=== PATIENT | female | born 1990 | race African-American/Black ===

== ENCOUNTER 2020-02-02 08:45 | Inpatient (IN) | payer OTHER ==
[2020-02-02] MEDS ORDERED: DEXTROSE 5%-LACTATED RINGERS 1,000 ML IV SCH ×2 (10:15→11:16)
[2020-02-02 11:15] VITALS: BMI 27.1
[2020-02-02] MEDS ORDERED: AMPICILLIN - 2 GM in SODIUM CHLORIDE 100 ML IVPB ONE (11:30)
[2020-02-02] MEDS ORDERED: AMPICILLIN SODIUM 2 GM VIAL ONE (11:34)
[2020-02-02] MEDS ORDERED: PROMETHAZINE HCL 25 MG/1 ML VIAL IVPB ONE (11:45)
[2020-02-02] MEDS ORDERED: ELECTROLYTE-148 SOLN 1,000 ML IV SCH ×2 (11:45→19:15)
[2020-02-02] MEDS ORDERED: BUTORPHANOL TARTRATE 2 MG/ML VIAL IVPB ONE (11:45)
[2020-02-02] MEDS ORDERED: BUTORPHANOL TARTRATE 2 MG/ML VIAL ONE (12:07)
[2020-02-02] MEDS ORDERED: PROMETHAZINE HCL 25 MG/1 ML VIAL ONE (12:08)
[2020-02-02 12:17] LABS: BASO % 0.3 % (0-2.0); EOS % 0.1 % (0-4.5); HEMATOCRIT 36.3 % (32.4-45.2); LYMPH % 10.2 % (8-40); MCH 32.4 pg (25.7-33.7); MCHC 33.2 g/dl (32.0-36.0); MEAN CELL VOLUME 97.7 fl (80-96); MEAN PLT VOLUME 10.1 fl (7.5-11.1); MONO % 4.1 % (3.8-10.2); NEUT % 85.3 % (42.8-82.8); PLATELET COUNT 173 K/MM3 (134-434); RBC 3.71 M/mm3 (3.60-5.2); RDW 12.8 % (11.6-15.6); WHITE BLOOD COUNT 10.5 K/mm3 (4.0-10.0)
[2020-02-02 12:32] LABS: INR 0.85 (0.83-1.09)
[2020-02-02 12:33] LABS: BLOOD UREA NITROGEN 8.3 mg/dL (7-18); CALCIUM 9.2 mg/dL (8.5-10.1); CREATININE 0.8 mg/dL (0.55-1.3); POTASSIUM 3.9 mmol/L (3.5-5.1)
[2020-02-02 12:35] LABS: ACTIVATED PTT 24.9 SECONDS (25.2-36.5)
[2020-02-02] MEDS ORDERED: AMPICILLIN SODIUM 1 GM VIAL ONE (14:54)
[2020-02-02] MEDS ORDERED: OXYTOCIN 30 UNITS in 0.9% NS 30 UNIT/500 ML INFUS.BAG IVPB ONE (14:54)
[2020-02-02] MEDS: AMPICILLIN - 1 GM in SODIUM CHLORIDE 100 ML IVPB SCH ×2 (15:14→19:31)
[2020-02-02] MEDS ORDERED: OXYTOCIN 30 UNITS in 0.9% NS 30 UNIT/500 ML INFUS.BAG IVPB SCH (15:15)
[2020-02-02] MEDS ORDERED: FENTANYL/BUPIVACAINE/NS/PF - PCEA - 50 ML DISP.SYRIN EP ONE (15:42)
[2020-02-02] MEDS ORDERED: NALOXONE HCL 0.4 MG/ML VIAL IVPUSH PRN (16:37)
[2020-02-02] MEDS ORDERED: FENTANYL/BUPIVACAINE/NS/PF - PCEA - 50 ML DISP.SYRIN EP SCH (16:45)
[2020-02-02] MEDS ORDERED: LIDOCAINE HCL 1% PRESERVATIVE FREE - 30ML VIAL ONE (17:44)
[2020-02-02] MEDS ORDERED: OXYTOCIN 20 UNITS in 0.9% NS 20 UNIT/1,000 ML INFUS.BAG IV ONE (17:44)
[2020-02-02] MEDS ORDERED: PCA PUMP NR ONE (18:58)
[2020-02-02] MEDS ORDERED: BENZOCAINE 20% 57 GM BOTTLE TP PRN (19:11)
[2020-02-02] MEDS ORDERED: WITCH HAZEL 50% (TUCKS) 40 PAD/JAR PAD TP PRN (19:11)
[2020-02-02] MEDS ORDERED: METHYLERGONOVINE MALEATE 0.2 MG/1 ML AMP IM PRN (19:11)
[2020-02-02] MEDS ORDERED: BISACODYL 10 MG SUPP.RECT RC PRN (19:11)
[2020-02-02] MEDS ORDERED: BENZOCAINE 28 GM HEMORRHOIDAL OINTMENT TP PRN (19:11)
--- NOTE | 2020-02-02 19:11 | HP ---
Past Medical History - Primary Care Physician PCP:: Tanner Paris - Admission Chief Complaint: 29yo P0 with at EGA 38w3d admitted with spontaneous early labor. 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: No: Alzheimer's, CVA, Dementia, Migraine, Multiple Sclerosis, Peripheral Neuropathy, Parkinson's, Seizure, Syncope, TIA, Vertigo, Other Cardiovascular: No: AFIB, Aneurysm, Aortic Insufficiency, Aortic Stenosis, CAD, CHF, Deep Vein Thrombosis, HTN, Hyperlipdemia, LA, Mitral Insufficiency, Mitral Stenosis, Murmur, Pulmonary Hypertension, Other Pulmonary: No: Asthma, Bronchitis, Cancer, COPD, O2 Dependent, Pneumonia, Previously Intubated, Pulmonary Embolus, Pulmonary Fibrosis, Sleep Apnea, Other Gastrointestinal: No: Ascites, Cancer, Constipation, Crohn's Disease, Diverticulitis, Diverticulosis, Esophageal Varices, Gastritis, GERD, GI Bleed, Hemorrhoids, Hiatal Hernia, Inflamatory Bowel Disease, Irritable Bowel Disease, Pancreatitis, Peptic Ulcer Disease, Ulcerative Colitis, Other Hepatobiliary: No: Cirrhosis, Cholelithiasis, Cholecystitis, Choledocholithiasis, Hepatitis A, Hepatitis B, Hepatitis C, Other Renal/: No: Renal Failure, Renal Inusuff, BPH, Cancer, Hematuria, Hemodial ysis, Neurogenic Bladder, Renal Calculi, UTI, Other Reproductive: No: Ectopic , Endometriosis, Fibroids, PID, Polycystic Ovary Syndrome, Postmenopausal, Other ...: 1 ...Para: 0 ...Term: 0 ...: 0 ...Spon : 0 ...Induced : 0 ...Living Children: 0 ...Multiple Gestation: 0 ...LMP: 05/04/19 ... Weeks Gestation by Dates: 38.3 ...EDC by Dates: 02/08/20 ...EDC by Sono: 02/11/20 Heme/Onc: No: Anemia, B12 Deficiency, Bleeding Disorder, Cancer, Current Chemotherapy, Current Radiation Therapy, Hemochromatosis, Hypercoaguable State, Myeloproliferative Synd, Sickle Cell Disease, Sickle Cell Trait, Thrombocytopenia, Other Infectious Disease: No: AIDS, C-Diff, Herpes Zoster, HIV, MRSA, STD's, T uberculosis, VREF, Other Psych: No: Addictions, Anxiety, Bipolar, Depression, Panic, Psychosis, Schizophrenia, Other Musculoskeletal: No: Bursitis, Chronic low back pain, Hemiparesis, Hemiplegia, Osteoarthritis, Paraplegia, Other Rheumatology: No: Fibromyalgia, Gout, Lupus, Rheumatoid Arthritis, Sarcoidosis, Vasculitis, Other ENT: No: Allergic Rhinitis, Sinusitis, Other Endocrine: No: Nghia's Disease, [place]'s Disease, Diabetes Insipidus, Diabetes Mellitus, Hyperparathyroidism, Hyperthyroidism, Hypothyroidism, Osteopenia, SIADH, Other Dermatology: No: Basal Cell, Cellulitis, Eczema, Melanoma, Psoriasis, Squamous Cell, Other - Past Surgical History Past Surgical History: Yes: None Hx Myomectomy: No Hx Transabdominal Cerclage: No - Smoking History Smoking history: Never smoked Have you smoked in the past 12 months: No - Alcohol/Substance Use Hx Alcohol Use: No History of Substance Use: reports: None - Social History Usual Living Arrangement: Yes: With Spouse Do you think of yourself as: Straight/Heterosexual ADL: Independent 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 History of Recent Travel: No Home Medications - Allergies Allergies/Adverse Reactions: Allergies Allergy/AdvReac Type Severity Reaction Status Date / Time shellfish derived Allergy Verified 02/02/20 09:25 - Home Medications Home Medications: Ambulatory Orders Ferrous Sulfate [Feosol] 325 mg PO DAILY 02/02/20 Pnv No.95/Ferrous Fum/Folic AC [ Vitamin Tablet] 1 each PO DAILY 02/02/20 Family Medical History Family History: Denies Review of Systems - Review of Systems Constitutional: reports: No Symptoms, Other (pain with contractions) Eyes: reports: No Symptoms HENT: reports: No Symptoms Neck: reports: No Symptoms Cardiovascular: reports: No Symptoms Respiratory: reports: No Symptoms Gastrointestinal: reports: No Symptoms Genitourinary: reports: No Symptoms Breasts: reports: No Symptoms Reported Musculoskeletal: reports: No Symptoms Integumentary: reports: No Symptoms Neurological: reports: No Symptoms Endocrine: reports: No Symptoms Hematology/Lymphatic: reports: No Symptoms Psychiatric: reports: No Symptoms Pain Intensity: 9 Physical Exam - Maternity Vital Signs: Vital Signs Temperature 98.5 F 02/02/20 17:00 Pulse Rate 89 02/02/20 18:00 Respiratory Rate 18 02/02/20 18:00 Blood Pressure 126/111 H 02/02/20 18:00 O2 Sat by Pulse Oximetry (%) 99 02/02/20 18:00 Constitutional: Yes: Well Nourished, No Distress, Calm Eyes: Yes: WNL, Conjunctiva Clear, EOM Intact HENT: Yes: WNL, Atraumatic, Normocephalic Neck: Yes: WNL, Supple, Trachea Midline Cardiovascular: Yes: WNL, Regular Rate and Rhythm Lungs: Clear to auscultation, Normal air movement - Abdominal Exam/OB Fundal Height: 39 Number of Fetuses: Single Presentation: Vertex Contractions: Yes Regularity: Regular Intensity: Mod/Strong Monitor Mode: External Heart Rate (range): 140 Heart Rate Location: Midline Category: I Accelerations: Non-Uniform Decelerations: None - Vaginal Exam/OB Vaginal Bleeding: No Speculum Exam: No Dilatation (cm): 1 Effacement (%): 70 Amniotic Membrane Status: Intact Station: -3 - Physical Exam Musculoskeletal: Yes: WNL Extremities: Yes: WNL Edema: No Integumentary: Yes: WNL Deep Tendon Reflex Grade: Normal +2 ...Motor Strength: WNL Psychiatric: Yes: WNL, Alert, Oriented - Labs Lab Results: CBC, BMP 02/02/20 11:50 02/02/20 11:50 Hemorrhage Risk Assessment - Risk Factors Medium Risk Factors: Yes: None High Risk Factors: Yes: None Risk Score: 1 Risk Level: Medium Risk Imaging - Results Ultrasound: Report Reviewed Assessment/Plan 29yo P0 with at EGA 38w3d admitted with spontaneous early labor. Pt was admitted in early labor. The contractions were augmented with pitocin. The pt progressed to 10cm of cervical dilation. She has a over 2nd degree perineal laceration.
[2020-02-02] MEDS: ACETAMINOPHEN 325 MG TABLET (FP) PO PRN (19:15)
[2020-02-02] MEDS ORDERED: IBUPROFEN 600 MG TABLET (FP) PO ONE (19:15)
[2020-02-02] MEDS ORDERED: OXYTOCIN 20 UNITS in 0.9% NS 20 UNIT/1,000 ML INFUS.BAG IV SCH (19:15)
[2020-02-02] MEDS: IBUPROFEN 600 MG TABLET (FP) PO PRN (19:15)
[2020-02-02] MEDS ORDERED: ACETAMINOPHEN 325 MG TABLET (FP) ONE (19:15)
--- NOTE | 2020-02-02 21:05 | PN ---
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
[2020-02-02 21:16] LABS: HEMATOCRIT 36.9 % (32.4-45.2); HEMOGLOBIN 12.3 GM/dL (10.7-15.3); MCH 32.3 pg (25.7-33.7); MCHC 33.2 g/dl (32.0-36.0); MEAN CELL VOLUME 97.3 fl (80-96); MEAN PLT VOLUME 9.7 fl (7.5-11.1); PLATELET COUNT 181 K/MM3 (134-434); RBC 3.79 M/mm3 (3.60-5.2); RDW 13.1 % (11.6-15.6); WHITE BLOOD COUNT 17.2 K/mm3 (4.0-10.0)
[2020-02-02 21:28] LABS: INR 0.87 (0.83-1.09); PROTHROMBIN TIME (PATIENT) 10.3 SEC (9.7-13.0)
[2020-02-02 21:31] LABS: ACTIVATED PTT 26.1 SECONDS (25.2-36.5)
[2020-02-02 21:34] LABS: BILIRUBIN,TOTAL 0.5 mg/dL (0.2-1); BLOOD UREA NITROGEN 6.9 mg/dL (7-18); CREATININE 0.9 mg/dL (0.55-1.3); POTASSIUM 3.9 mmol/L (3.5-5.1); TOT PROT 7.3 g/dl (6.4-8.2); URIC ACID 5.2 mg/dL (2.6-7.2)
[2020-02-02] MEDS ORDERED: LABETALOL HCL 5 MG/1 ML (100MG/20 ML VIAL) IVPUSH ONE (22:05)
[2020-02-02 22:06] LABS: EPI CELLS 5 /uL (0-25.1); HYALINE CASTS 0 /uL (0-3.1); PH,URINE 6.5 (5.0-8.0); URINE APPEARANCE CLEAR; URINE BACTERIA 6 /uL (0-1359); URINE BILIRUBIN NEGATIVE (NEGATIVE); URINE COLOR YELLOW; URINE GLUCOSE (UA) NEGATIVE (NEGATIVE); URINE KETONE TRACE (NEGATIVE); URINE LEUK ESTERASE NEGATIVE (NEGATIVE); URINE NITRITE NEGATIVE (NEGATIVE); URINE PROTEIN NEGATIVE (NEGATIVE); URINE RBC 101 /uL (0-23.9); URINE UROBILINOGEN 0.2 mg/dL (0.2-1.0); URINE WBC 3 /uL (0-25.8)
[2020-02-03 08:09] LABS: BASO % 0.3 % (0-2.0); EOS % 0.3 % (0-4.5); HEMOGLOBIN 9.5 GM/dL (10.7-15.3); LYMPH % 13.9 % (8-40); MCH 31.7 pg (25.7-33.7); MCHC 32.7 g/dl (32.0-36.0); MEAN CELL VOLUME 96.8 fl (80-96); MEAN PLT VOLUME 9.7 fl (7.5-11.1); MONO % 9.3 % (3.8-10.2); NEUT % 76.2 % (42.8-82.8); PLATELET COUNT 151 K/MM3 (134-434); RBC 2.99 M/mm3 (3.60-5.2); RDW 12.9 % (11.6-15.6); WHITE BLOOD COUNT 13.2 K/mm3 (4.0-10.0)
[2020-02-03] MEDS: PRENATAL VITAMINS W/ FOLIC ACID TABLET (FP) PO SCH (09:34)
[2020-02-03] MEDS: IBUPROFEN 600 MG TABLET (FP) PO PRN ×2 (09:35→20:25)
[2020-02-03] MEDS: ACETAMINOPHEN 325 MG TABLET (FP) PO PRN ×2 (09:36→20:26)
--- NOTE | 2020-02-03 18:09 | PN ---
Post Progress Note - Subjective Subjective: Patient without acute complaints. Reports tolerating oral intake without nausea or vomiting. Ambulating without dizziness. Denies fevers or chills. Pain well controlled with oral pain medication. Pumping/breast feeding without issue. Passing flatus, no BM. Post Day: 1 Type of Delivery: Vital Signs: Vital Signs Temperature 98.3 F 02/03/20 18:00 Pulse Rate 70 02/03/20 18:00 Respiratory Rate 16 02/03/20 18:00 Blood Pressure 119/62 02/03/20 18:00 O2 Sat by Pulse Oximetry (%) 98 02/03/20 14:00 Breast Exam: Yes: Soft Uterus: Yes: Fundus Firm, Fundus below umbilicus, Non-tender Abdomen/GI: Yes: Abdomen soft, Tolerating PO Lochia: Yes: Rubra Lochia, amount: Small Extremities: Yes: Calves non-tender Perineum: Yes: Intact, Laceration Activity: Ambulating - Labs Labs: CBC WBC 13.2 K/mm3 (4.0-10.0) H 02/03/20 07:30 RBC 2.99 M/mm3 (3.60-5.2) L 02/03/20 07:30 Hgb 9.5 GM/dL (10.7-15.3) L 02/03/20 07:30 Hct 29.0 % (32.4-45.2) L D 02/03/20 07:30 MCV 96.8 fl (80-96) H 02/03/20 07:30 MCH 31.7 pg (25.7-33.7) 02/03/20 07:30 MCHC 32.7 g/dl (32.0-36.0) 02/03/20 07:30 RDW 12.9 % (11.6-15.6) 02/03/20 07:30 Plt Count 151 K/MM3 (134-434) 02/03/20 07:30 MPV 9.7 fl (7.5-11.1) 02/03/20 07:30 Absolute Neuts (auto) 10.1 K/mm3 (1.5-8.0) H 02/03/20 07:30 Neutrophils % 76.2 % (42.8-82.8) 02/03/20 07:30 Lymphocytes % 13.9 % (8-40) D 02/03/20 07:30 Monocytes % 9.3 % (3.8-10.2) D 02/03/20 07:30 Eosinophils % 0.3 % (0-4.5) D 02/03/20 07:30 Basophils % 0.3 % (0-2.0) 02/03/20 07:30 Nucleated RBC % 0 % (0-0) 02/03/20 07:30 Assessment/Plan 29yo P1 s/p , doing well stable, afebrile. Asymptomatic for anemia. care instructions reviewed. Continue routine care. Ambulation encouraged Discharge instruction reviewed.
--- NOTE | 2020-02-03 18:12 | DS ---
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: Vital Signs Temperature 98.3 F 02/03/20 18:00 Pulse Rate 70 02/03/20 18:00 Respiratory Rate 16 02/03/20 18:00 Blood Pressure 119/62 02/03/20 18:00 O2 Sat by Pulse Oximetry (%) 98 02/03/20 14:00 Constitutional: Yes: Well Nourished, No Distress, Calm Eyes: Yes: WNL, Conjunctiva Clear, EOM Intact HENT: Yes: WNL, Atraumatic, Normocephalic Neck: Yes: WNL, Supple, Trachea Midline Cardiovascular: Yes: WNL, Regular Rate and Rhythm Respiratory: Yes: WNL, Regular, CTA Bilaterally Gastrointestinal: Yes: WNL, Normal Bowel Sounds, Soft ...Rectal Exam: Yes: Deferred Renal/: Yes: WNL ....Post : Yes: Uterus firm, Uterus non-tender, Slight lochia rubra Breast(s): Yes: WNL Musculoskeletal: Yes: WNL Extremities: Yes: WNL Edema: Yes Edema: LLE: Trace, RLE: Trace Integumentary: Yes: WNL Neurological: Yes: WNL, Alert, Oriented ...Motor Strength: WNL Psychiatric: Yes: WNL, Alert, Oriented Labs: CBC, BMP 02/03/20 07:30 02/02/20 20:40 Delivery - Delivery Vaginal Delivery: No Problems, Spontaneous Type of Anesthesia: Local, Epidural Episiotomy/Laceration: Perineal Extension/lac, 2nd degree EBL (cc): 300 Delivery, Single - Stages of Labor Date 1st Stage Initiatied: 02/02/20 Time 1st Stage Initiated: 02:00 Date 2nd Stage Initiated: 02/02/20 Time 2nd Stage Initiated: 17:50 Date of Delivery: 02/02/20 Time of Delivery: 18:41 Time Placenta Delivered: 18:50 Placenta: Yes: Spontaneous, Normal Configuration - 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 Present: No Gender: Female Weight: 3.175 kg Position: Right, OA Total Hours ROM (Hrs/Mins): 1HR - 1 Minute Total Score: 9 5 Minutes Total Score: 9 - [place] Feeding Plan Initial Plan: Elected not to breastfeed exclusively throughout hospitalization Benefits of Exclusively reinforced: Yes Discharge Summary Problems reviewed: Yes Reason For Visit: LABOR ADMISSION Spontaneous labor Procedures: Principal: ERNESTO Hospital Course: Normal recovery, breast feeding Plan of Treatment: Normal recovery, breast feeding Goals: Normal recovery, breast feeding Condition: Good - Instructions Diet, Activity, Other Instructions: Physical activity Resume your normal everyday activity as tolerated no heavy lifting or exercise until seen by your surgeon. You may walk unlimited jessica of and climb stairs. You may resume driving the car when you feel safe and comfortable behind the wheel. No sexual activity as instructed. Wound care If you have a bandage, leave it on, and keep dry for 48-72 hours. After that time discard the outer bandage. If they are tapes on the skin under the out of bandage leave them in place. They will peel off in the next 7 to 10 days. Do Not Peel them off. You may shower the day after surgery. If there are tapes present on the skin, you may shower over them. Diet There are no dietary restrictions. Eat healthy, high-fiber foods. Drink 6 to 8 glasses of liquid each day. This will assist in keeping your bowels are regular. Pain management You may take Tylenol or acetaminophen or Ibuprofen (for example, Motrin, Advil etc.) from my pain prescription medication is ordered should be taken as prescribed for moderate to severe pain. Call MD for any of the following: Severe pain not relieved by medication Fever of 101 or higher Excessive bleeding or drainage on dressing Inability to urinate Referrals: Piero Franco MD [Staff Physician] - 1 Week - Home Medications Comprehensive Discharge Medication List: Ambulatory Orders Ferrous Sulfate [Feosol] 325 mg PO DAILY 02/02/20 Pnv No.95/Ferrous Fum/Folic AC [ Vitamin Tablet] 1 each PO DAILY 02/02/20 Prescription Drug Monitoring Program (I-STOP) results: I-STOP not reviewed
[2020-02-03] MEDS ORDERED: SENNOSIDES/DOCUSATE COMBO (SENNA PLUS) TABLET (UD) PO PRN (22:00)
--- NOTE | 2020-02-04 08:56 | PN ---
Post Progress Note - Subjective Subjective: Patient without acute complaints. Reports tolerating oral intake without nausea or vomiting. Ambulating without dizziness. Denies fevers or chills. Pain well controlled with oral pain medication. without difficulty. Passing flatus. Type of Delivery: Vital Signs: Vital Signs Temperature 98.7 F 02/03/20 20:27 Pulse Rate 64 02/03/20 20:27 Respiratory Rate 20 02/03/20 20:27 Blood Pressure 129/64 02/03/20 20:27 O2 Sat by Pulse Oximetry (%) 98 02/03/20 14:00 Breast Exam: Yes: Soft Uterus: Yes: Fundus Firm Abdomen/GI: Yes: Abdomen soft, Tolerating PO. No: Abdominal Distention, Tender Lochia: Yes: Rubra Lochia, amount: Small Extremities: Yes: Calves non-tender. No: Edema Activity: Ambulating - Labs Labs: CBC WBC 13.2 K/mm3 (4.0-10.0) H 02/03/20 07:30 RBC 2.99 M/mm3 (3.60-5.2) L 02/03/20 07:30 Hgb 9.5 GM/dL (10.7-15.3) L 02/03/20 07:30 Hct 29.0 % (32.4-45.2) L D 02/03/20 07:30 MCV 96.8 fl (80-96) H 02/03/20 07:30 MCH 31.7 pg (25.7-33.7) 02/03/20 07:30 MCHC 32.7 g/dl (32.0-36.0) 02/03/20 07:30 RDW 12.9 % (11.6-15.6) 02/03/20 07:30 Plt Count 151 K/MM3 (134-434) 02/03/20 07:30 MPV 9.7 fl (7.5-11.1) 02/03/20 07:30 Absolute Neuts (auto) 10.1 K/mm3 (1.5-8.0) H 02/03/20 07:30 Neutrophils % 76.2 % (42.8-82.8) 02/03/20 07:30 Lymphocytes % 13.9 % (8-40) D 02/03/20 07:30 Monocytes % 9.3 % (3.8-10.2) D 02/03/20 07:30 Eosinophils % 0.3 % (0-4.5) D 02/03/20 07:30 Basophils % 0.3 % (0-2.0) 02/03/20 07:30 Nucleated RBC % 0 % (0-0) 02/03/20 07:30 Assessment/Plan 29 yo PPD # 2 s/p , afebrile, vital signs stable, asymptomatic anemia, doing well 1. Patient stable for discharge home today. 2. Patient encouraged to contact MD for: - Severe pain not controlled by oral pain medication - Fevers or chills - Nausea or vomiting, intolerance of oral intake 3. Patient to follow up in office in 4-6 weeks for visit
[2020-02-04] MEDS: PRENATAL VITAMINS W/ FOLIC ACID TABLET (FP) PO SCH (09:38)
[2020-02-04] MEDS: IBUPROFEN 600 MG TABLET (FP) PO PRN (09:47)
[2020-02-04] MEDS: ACETAMINOPHEN 325 MG TABLET (FP) PO PRN (09:47)
[2020-02-04] MEDS ORDERED: SENNOSIDES/DOCUSATE COMBO (SENNA PLUS) TABLET (UD) PO SCH (10:00)
[2020-02-04 14:41] VITALS: BP 120/68; PULSE 62; TEMP 98.6
== END 2020-02-04 14:30 | disposition home or self-care (01) | DRG 807 ==
LOC: JDEL 08:45 → JLDR 11:00 → J3W 02-03 00:14
PROVIDERS: ADMIT Obstetrics & Gynecology; ATTEND Obstetrics & Gynecology
PROC: 10E0XZZ Delivery of Products of Conception, External Approach (ICD-10-PCS; principal; 2020-02-02)
PROC: 0KQM0ZZ Repair Perineum Muscle, Open Approach (ICD-10-PCS; 2020-02-02)
PROC: 0W8NXZZ Division of Female Perineum, External Approach (ICD-10-PCS; 2020-02-02)
DX: O70.1 Second degree perineal laceration during delivery (principal); Z37.0 Single live birth; O99.013 Anemia complicating pregnancy, third trimester; D64.9 Anemia, unspecified; Z22.330 Carrier of Group B streptococcus; Z3A.38 38 weeks gestation of pregnancy
CPT/HCPCS: 36415; 59025; 59409; 80048; 80053; 81003; 84550; 85025; 85027; 85384; 85610; 85730; 86780; 86850; 86900; 86901; U0003